=== PATIENT | female | born 1945 | race Caucasian/White ===

== ENCOUNTER 2024-06-04 17:22 | Inpatient (IN) ==
[2024-06-04] MEDS: NORCO 5/325 MG TAB PO PRN (22:51)
[2024-06-04 23:13] VITALS: BMI 34.2
[2024-06-05 06:24] LABS: BASOPHILS # (AUTO) 0.1 X10^3/uL (0.0-0.1); BASOPHILS % (AUTO) 0.9 % (0.2-1.0); EOSINOPHILS # (AUTO) 0.2 x10^3/uL (0.0-0.2); EOSINOPHILS % (AUTO) 3.3 % (0.9-2.9); HEMATOCRIT 36.4 % (36.0-47.0); HEMOGLOBIN 12.2 g/dL (12.0-16.0); LYMPHOCYTES # (AUTO) 1.5 X10^3/uL (1.3-2.9); LYMPHOCYTES % (AUTO) 19.7 % (21.0-51.0); MEAN CORPUSCULAR HEMOGLOBIN 31.2 pg (27.0-34.0); MEAN CORPUSCULAR HGB CONC 33.7 g/dL (33.0-35.0); MEAN CORPUSCULAR VOLUME 92.7 fL (80.0-100.0); MEAN PLATELET VOLUME 8.1 fL (7.4-11.0); MONOCYTES # (AUTO) 0.9 x10^3/uL (0.3-0.8); MONOCYTES % (AUTO) 12.4 % (0.0-13.0); NEUTROPHILS # (AUTO) 4.8 x10^3/uL (2.2-4.8); NEUTROPHILS % (AUTO) 63.7 % (42.0-75.0); PLATELET COUNT 193 X10^3/uL (150.0-450.0); RED BLOOD COUNT 3.92 X10^6/uL (3.5-5.4); RED CELL DISTRIBUTION WIDTH 13.6 % (11.6-16.5); WHITE BLOOD COUNT 7.5 X10^3/uL (3.6-10.0)
[2024-06-05 07:06] LABS: ALBUMIN 2.5 g/dL (3.4-5.0); CALCIUM 8.7 mg/dL (8.5-10.1); CARBON DIOXIDE 28.2 mmol/L (21-32); COR CA(FOR HYPOALB) 9.9 mg/dL (8.5-10.1); CREATININE 1.33 mg/dL (0.55-1.02); POTASSIUM 3.9 mmol/L (3.5-5.1); TOTAL PROTEIN 6.7 g/dL (6.4-8.2)
[2024-06-05] MEDS: COREG TAB 3.125 MG PO SCH (08:57)
[2024-06-05] MEDS: ASPIRIN 81 MG CHEWTAB PO SCH (08:57)
[2024-06-05] MEDS: JANUVIA PO SCH (08:58)
[2024-06-05] MEDS: TAB-A-VITE PO SCH (08:58)
[2024-06-05] MEDS: VITAMIN B-12 PO SCH (08:59)
[2024-06-05] MEDS: ZINC SULFATE PO SCH (08:59)
[2024-06-05] MEDS: MIRALAX POWDER (1 DOSE 17 G) PO SCH (10:28)
[2024-06-05] MEDS: LOVENOX INJ 40 MG SYR SC SCH (10:28)
--- NOTE | 2024-06-05 10:58 | DR.H&P ---
H&P History & Physical for Day of: H&P Date: 06/05/24 Chief Complaint Chief Complaint: right femoral fracture History of Present Illness History of Present Illness: Ms Howard is a 78y/o female with a PMH of HTN, HLD, Type 2 DM presented after having a fall on 05/29/24. Patient was seen at [facility] ER and had imaging done due to worsening right knee pain. She was found to have a distal femoral fracture. She was sent home with ortho f/u, knee mobilizer and pain medication. She saw [facility] on 06/03/24 and was told that no surgical intervention is needed at this time. Patient needs to be NWB for 6 weeks. Patient is not able to take care of herself at home and requires assistance. Ortho had recommended to f/u with PCP regarding rehab placement. Patient would like to be placed in rehab for further treatment and therapy. She states her pain has been well-controlled. Labs/imaging reviewed -See scanned notes from ER visit and Ortho Plan: Admit for physical therapy evaluation, CM working on rehab placement in [facility]. Continue pain control, add lovenox. Add stool softners. Resume home medications. Follow Ortho recommendations. Past Medical History Past Medical History: Diabetes and Hypertension Past Surgical History Surgical History: Joint Replacement Family History Family Medical History: Coronary Artery Disease and Sudden Cardiac Social History Does patient currently use any type of tobacco product: No Type of Tobacco Use: None Does any household member use tobacco: No Alcohol Use: None Drug Use: None Medications Home Medications: Home Medications Medication Instructions Recorded Confirmed Type atorvastatin 40 mg tablet 40 mg PO DAILY 01/25/22 06/04/24 History sitagliptin phosphate 100 mg 100 mg PO DAILY 01/25/22 06/04/24 History tablet (Januvia) ascorbic acid (vitamin C) 500 mg 500 mg PO HS 06/04/24 06/04/24 History tablet (Vitamin C) aspirin 81 mg tablet,delayed 81 mg PO HS 06/04/24 06/04/24 History release biotin 1,000 mcg chewable tablet 1,000 mcg PO HS 06/04/24 06/04/24 History carvedilol 3.125 mg tablet 3.125 mg PO BID 06/04/24 06/04/24 History cholecalciferol (vitamin D3) 25 25 mcg PO HS 06/04/24 06/04/24 History mcg (1,000 unit) capsule (Vitamin D3) cyanocobalamin (vitamin B-12) 3,000 mcg sublingual QDAY 06/04/24 06/04/24 History 2,500 mcg sublingual tablet (Vitamin B-12) hydrocodone 5 mg-acetaminophen 325 1 tab PO Q4H PRN Pain, Severe 06/04/24 06/04/24 History mg tablet [id number] 8 mg-folic 400 1 tab PO DAILY 06/04/24 06/04/24 History mcg-K 50 mcg-lutein 300 mcg tablet (Centrum Silver Women) zinc 50 mg capsule 50 mg PO QDAY 06/04/24 06/04/24 History Allergies Allergies Allergy/AdvReac Type Severity Reaction Status Date / Time No Known Drug Allergies Allergy Verified 01/15/22 11:07 Labs 06/05/24 05:35 06/05/24 05:35 Labs: Laboratory WBC 7.5 X10^3/uL (3.6-10.0) 06/05/24 05:35 RBC 3.92 X10^6/uL (3.5-5.4) 06/05/24 05:35 Hgb 12.2 g/dL (12.0-16.0) 06/05/24 05:35 Hct 36.4 % (36.0-47.0) 06/05/24 05:35 MCV 92.7 fL (80.0-100.0) 06/05/24 05:35 MCH 31.2 pg (27.0-34.0) 06/05/24 05:35 MCHC 33.7 g/dL (33.0-35.0) 06/05/24 05:35 RDW 13.6 % (11.6-16.5) 06/05/24 05:35 Plt Count 193 X10^3/uL (150.0-450.0) 06/05/24 05:35 MPV 8.1 fL (7.4-11.0) 06/05/24 05:35 Neut % (Auto) 63.7 % (42.0-75.0) 06/05/24 05:35 Lymph % (Auto) 19.7 % (21.0-51.0) L 06/05/24 05:35 [place] % (Auto) 12.4 % (0.0-13.0) 06/05/24 05:35 Eos % (Auto) 3.3 % (0.9-2.9) H 06/05/24 05:35 Baso % (Auto) 0.9 % (0.2-1.0) 06/05/24 05:35 Neut # (Auto) 4.8 x10^3/uL (2.2-4.8) 06/05/24 05:35 Lymph # (Auto) 1.5 X10^3/uL (1.3-2.9) 06/05/24 05:35 [place] # (Auto) 0.9 x10^3/uL (0.3-0.8) H 06/05/24 05:35 Eos # (Auto) 0.2 x10^3/uL (0.0-0.2) 06/05/24 05:35 Baso # (Auto) 0.1 X10^3/uL (0.0-0.1) 06/05/24 05:35 Absolute Nucleated RBC 0.1 /100WBC 06/05/24 05:35 Sodium 140 mmol/L (136-145) 06/05/24 05:35 Corrected Sodium 143 mmol/L (136-145) 06/05/24 05:35 Potassium 3.9 mmol/L (3.5-5.1) 06/05/24 05:35 Chloride 102 mmol/L (98-107) 06/05/24 05:35 Carbon Dioxide 28.2 mmol/L (21-32) 06/05/24 05:35 BUN 33 mg/dL (7-18) H 06/05/24 05:35 Creatinine 1.33 mg/dL (0.55-1.02) H 06/05/24 05:35 Est GFR (MDRD) Af Amer 50 (>60) L 06/05/24 05:35 Est GFR (MDRD) Non-Af 41 (>60) L 06/05/24 05:35 Glucose 207 mg/dL (65-99) H 06/05/24 05:35 POC Glucose (mg/dL) 173 mg/dL (65-99) H 06/05/24 06:21 Calcium 8.7 mg/dL (8.5-10.1) 06/05/24 05:35 Corrected Calcium 9.9 mg/dL (8.5-10.1) 06/05/24 05:35 Total Bilirubin 1.00 mg/dL (0.2-1.0) 06/05/24 05:35 AST 32 Units/L (15-37) 06/05/24 05:35 ALT 22 Units/L (12-78) 06/05/24 05:35 Alkaline Phosphatase 86 Units/L (46-116) 06/05/24 05:35 Total Protein 6.7 g/dL (6.4-8.2) 06/05/24 05:35 Albumin 2.5 g/dL (3.4-5.0) L 06/05/24 05:35 Globulin 4.2 g/dL (2.5-4.5) 06/05/24 05:35 Albumin/Globulin Ratio 0.6 Ratio (1.1-2.1) L 06/05/24 05:35 Review of Systems Constitutional: No Symptoms Reported Eyes: No Symptoms Reported Respiratory: No Symptoms Reported Cardiovascular: No Symptoms Reported Gastrointestinal: No Symptoms Reported Musculoskeletal: Leg Pain Skin: Bruising and Ecchymosis Neurological: No Symptoms Reported Physical Exam Vital Signs: Vital Signs Temperature 98.5 F Temperature 97.8 F Pulse Rate [Apical] 88 Pulse Rate [Apical] 86 Respiratory Rate 20 Respiratory Rate 18 Blood Pressure [Left Arm] 145/63 Blood Pressure [Left Arm] 130/65 O2 Sat by Pulse Oximetry 95 O2 Sat by Pulse Oximetry 96 Oriented: Normal Eyes: Normal Throat: Normal Respiratory: Clear Throughout Cardiovascular: Normal Auscultation: Bowel Sounds: Normal Palpation: Normal Tenderness: Normal Skin: Bruising and Ecchymosis Musculoskeletal: Right, Left and Knee Psychiatric: Normal Mood Description: Calm Affect: Normal Speech Pattern: Clear and Appropriate Assessment/Plan (1) Fall: Qualifiers: Encounter type: sequela Qualified Code(s): W19.XXXS - Unspecified fall, sequela Status: Acute (2) Right femoral fracture: Qualifiers: Encounter type: initial encounter Femur location: condyle Fracture type: closed Fracture alignment: nondisplaced Qualified Code(s): S72.414A - Nondisplaced unspecified condyle fracture of lower end of right femur, initial encounter for closed fracture Status: Acute (3) Generalized weakness: Status: Acute (4) Type 2 diabetes mellitus: Qualifiers: Diabetes mellitus terminal block assembler insulin use: without terminal block assembler use Diabetes mellitus complication status: without complication Qualified Code(s): E11.9 - Type 2 diabetes mellitus without complications Status: Acute (5) HTN (hypertension): Qualifiers: Hypertension type: primary hypertension Qualified Code(s): I10 - Essential (primary) hypertension Status: Acute
[2024-06-05] MEDS: NovoLIN R (or HumuLIN R) SUBCUT PRN (11:38)
[2024-06-05] MEDS: COLACE CAP 100 MG PO SCH (21:39)
[2024-06-05] MEDS: VITAMIN D3 25 mcg (1,000 UNITS) PO SCH (21:40)
[2024-06-05] MEDS: LIPITOR TAB 40 MG PO SCH (21:40)
[2024-06-05] MEDS: SNACK - Diabetic Appropriate PO SCH ×2 (21:40)
[2024-06-05] MEDS: VITAMIN C PO SCH (21:40)
[2024-06-05] MEDS: NORCO 5/325 MG TAB PO PRN (21:50)
[2024-06-06 06:22] LABS: BASOPHILS # (AUTO) 0.1 X10^3/uL (0.0-0.1); BASOPHILS % (AUTO) 0.9 % (0.2-1.0); EOSINOPHILS # (AUTO) 0.3 x10^3/uL (0.0-0.2); HEMATOCRIT 36.4 % (36.0-47.0); LYMPHOCYTES # (AUTO) 1.2 X10^3/uL (1.3-2.9); LYMPHOCYTES % (AUTO) 14.7 % (21.0-51.0); MEAN CORPUSCULAR HEMOGLOBIN 30.8 pg (27.0-34.0); MEAN CORPUSCULAR HGB CONC 33.1 g/dL (33.0-35.0); MEAN CORPUSCULAR VOLUME 92.9 fL (80.0-100.0); MEAN PLATELET VOLUME 8.1 fL (7.4-11.0); MONOCYTES # (AUTO) 0.9 x10^3/uL (0.3-0.8); MONOCYTES % (AUTO) 11.7 % (0.0-13.0); NEUTROPHILS # (AUTO) 5.5 x10^3/uL (2.2-4.8); NEUTROPHILS % (AUTO) 68.7 % (42.0-75.0); PLATELET COUNT 219 X10^3/uL (150.0-450.0); RED BLOOD COUNT 3.91 X10^6/uL (3.5-5.4); RED CELL DISTRIBUTION WIDTH 13.5 % (11.6-16.5)
[2024-06-06 06:45] LABS: ALBUMIN 2.4 g/dL (3.4-5.0); CALCIUM 9.3 mg/dL (8.5-10.1); CARBON DIOXIDE 29.2 mmol/L (21-32); COR CA(FOR HYPOALB) 10.6 mg/dL (8.5-10.1); CREATININE 1.28 mg/dL (0.55-1.02); TOTAL PROTEIN 6.6 g/dL (6.4-8.2)
--- NOTE | 2024-06-06 09:48 | PCM.PROG ---
Progress Note Progress Note for Day of Date of Exam: 06/06/24 Subjective Subjective: Pt is a 78y/o female with a PMH of HTN, HLD, Type 2 DM admitted for distal femoral fracture. She [facility] on [facility]24 and was told that no surgical intervention is needed at this time. Patient needs to be NWB for 6 weeks. Patient is not able to take care of herself at home and requires assistance. Patient would like to be placed in rehab for further treatment and therapy. She states her pain has been well-controlled. Labs/imaging reviewed -Wbc 8, Hgb 12, Plt 219 -Na 140, K 4, Creatinine 1.28, Glucose 186 -See scanned notes from ER visit and Ortho Plan: Continue physical therapy, CM working on rehab placement in [facility]. Continue pain control, DVT ppx lovenox. Home medications have been resumed. Follow Ortho recommendations. Otherwise, continue current treatment plan. Follow up labs in the morning. Past Medical Family Social History Allergies: Allergies No Known Drug Allergies Allergy (Verified 01/15/22 11:07) Review of Systems ROS changes noted: see HPI Vital Signs and I&O's Vital Signs: Vital Signs Temperature 98.1 F Temperature 97.9 F Pulse Rate [Apical] 89 Pulse Rate [Apical] 94 Respiratory Rate 18 Respiratory Rate 18 Blood Pressure [Left Arm] 124/56 Blood Pressure [Left Arm] 147/65 O2 Sat by Pulse Oximetry 93 O2 Sat by Pulse Oximetry 95 Intake and Output: Intake & Output 06/03/24 06/04/24 06/05/24 06/06/24 23:59 23:59 23:59 23:59 Intake Total 200 / 200 1350 / 1350 0 / 0 Output Total 0 / 0 Balance 200 / 200 1350 / 1350 0 / 0 Physical Exam Oriented: Normal Eyes: Normal Throat: Normal Respiratory: Normal Cardiovascular: Normal Auscultation: Bowel Sounds: Normal Tenderness: Normal Skin: Bruising and Ecchymosis Musculoskeletal: Right, Left and Knee Psychiatric: Normal Mood Description: Calm Affect: Normal Speech Pattern: Clear and Appropriate Laboratory and Diagnostics 06/06/24 05:39 06/06/24 05:39 Labs: Laboratory WBC 8.0 X10^3/uL (3.6-10.0) 06/06/24 05:39 RBC 3.91 X10^6/uL (3.5-5.4) 06/06/24 05:39 Hgb 12.0 g/dL (12.0-16.0) 06/06/24 05:39 Hct 36.4 % (36.0-47.0) 06/06/24 05:39 MCV 92.9 fL (80.0-100.0) 06/06/24 05:39 MCH 30.8 pg (27.0-34.0) 06/06/24 05:39 MCHC 33.1 g/dL (33.0-35.0) 06/06/24 05:39 RDW 13.5 % (11.6-16.5) 06/06/24 05:39 Plt Count 219 X10^3/uL (150.0-450.0) 06/06/24 05:39 MPV 8.1 fL (7.4-11.0) 06/06/24 05:39 Neut % (Auto) 68.7 % (42.0-75.0) 06/06/24 05:39 Lymph % (Auto) 14.7 % (21.0-51.0) L 06/06/24 05:39 [place] % (Auto) 11.7 % (0.0-13.0) 06/06/24 05:39 Eos % (Auto) 4.0 % (0.9-2.9) H 06/06/24 05:39 Baso % (Auto) 0.9 % (0.2-1.0) 06/06/24 05:39 Neut # (Auto) 5.5 x10^3/uL (2.2-4.8) H 06/06/24 05:39 Lymph # (Auto) 1.2 X10^3/uL (1.3-2.9) L 06/06/24 05:39 [place] # (Auto) 0.9 x10^3/uL (0.3-0.8) H 06/06/24 05:39 Eos # (Auto) 0.3 x10^3/uL (0.0-0.2) H 06/06/24 05:39 Baso # (Auto) 0.1 X10^3/uL (0.0-0.1) 06/06/24 05:39 Absolute Nucleated RBC 0.0 /100WBC 06/06/24 05:39 Sodium 140 mmol/L (136-145) 06/06/24 05:39 Corrected Sodium 142 mmol/L (136-145) 06/06/24 05:39 Potassium 4.0 mmol/L (3.5-5.1) 06/06/24 05:39 Chloride 103 mmol/L (98-107) 06/06/24 05:39 Carbon Dioxide 29.2 mmol/L (21-32) 06/06/24 05:39 BUN 31 mg/dL (7-18) H 06/06/24 05:39 Creatinine 1.28 mg/dL (0.55-1.02) H 06/06/24 05:39 Est GFR (MDRD) Af Amer 52 (>60) L 06/06/24 05:39 Est GFR (MDRD) Non-Af 43 (>60) L 06/06/24 05:39 Glucose 186 mg/dL (65-99) H 06/06/24 05:39 POC Glucose (mg/dL) 175 mg/dL (65-99) H 06/06/24 05:29 Calcium 9.3 mg/dL (8.5-10.1) 06/06/24 05:39 Corrected Calcium 10.6 mg/dL (8.5-10.1) H 06/06/24 05:39 Total Bilirubin 1.20 mg/dL (0.2-1.0) H 06/06/24 05:39 AST 37 Units/L (15-37) 06/06/24 05:39 ALT 29 Units/L (12-78) 06/06/24 05:39 Alkaline Phosphatase 97 Units/L (46-116) 06/06/24 05:39 Total Protein 6.6 g/dL (6.4-8.2) 06/06/24 05:39 Albumin 2.4 g/dL (3.4-5.0) L 06/06/24 05:39 Globulin 4.2 g/dL (2.5-4.5) 06/06/24 05:39 Albumin/Globulin Ratio 0.6 Ratio (1.1-2.1) L 06/06/24 05:39 Plan (1) Fall: Status: Acute Qualifiers: Encounter type: sequela Qualified Code(s): W19.XXXS - Unspecified fall, sequela (2) Right femoral fracture: Status: Acute Qualifiers: Encounter type: initial encounter Femur location: condyle Fracture type: closed Fracture alignment: nondisplaced Qualified Code(s): S72.414A - Nondisplaced unspecified condyle fracture of lower end of right femur, initial encounter for closed fracture (3) Generalized weakness: Status: Acute (4) Type 2 diabetes mellitus: Status: Acute Qualifiers: Diabetes mellitus fpc insulin use: without fpc use Diabetes mellitus complication status: without complication Qualified Code(s): E11.9 - Type 2 diabetes mellitus without complications (5) HTN (hypertension): Status: Acute Qualifiers: Hypertension type: primary hypertension Qualified Code(s): I10 - Essential (primary) hypertension
[2024-06-06] MEDS: VOLTAREN 1 % GEL MULTI DOSE TUBE TOP SCH (10:33)
[2024-06-07 10:01] VITALS: BP 114/56; PULSE 89; RESP 20; TEMP 98.2; O2SAT 90
--- NOTE | 2024-06-11 19:07 | W.DIS.FURT ---
Summary of Discharge Discharge Summary of Date Date of Exam: 06/07/24 Admission Date Date of Admission: 06/04/24 Admission Diagnosis Hospital Course: Pt is a 78y/o female with a PMH of HTN, HLD, Type 2 DM admitted for distal femoral fracture. She saw [facility] on 06/03/24 and was told that no surgical intervention is needed at this time. Patient needs to be NWB for 6 weeks. Patient is not able to take care of herself at home and requires assistance. Hospital/treatment course included: physical therapy, pain control, DVT ppx lovenox. Home medications were resumed. Pt responded well to treatments. She was transferred to [facility] in stable condition for further rehab and will follow up with ortho outpatient. Vital Signs: Vital Signs (72 hours) 06/04/24 19:40 06/04/24 19:40 06/04/24 22:51 Temperature 98.1 F Pulse Rate [Apical] 94 H Respiratory Rate 18 21 Blood Pressure [Left Arm] 119/68 O2 Sat by Pulse Oximetry 92 L Oxygen Delivery Method Room Air Room Air 06/04/24 23:51 06/05/24 00:00 06/05/24 04:00 Temperature 98.5 F 97.8 F Pulse Rate [Apical] 95 H 86 Respiratory Rate 19 18 18 Blood Pressure [Left Arm] 132/65 130/65 O2 Sat by Pulse Oximetry 95 96 Oxygen Delivery Method Room Air Room Air 06/05/24 08:00 06/05/24 07:00 06/05/24 12:00 Temperature 98.5 F 97.9 F Pulse Rate [Apical] 88 87 Respiratory Rate 20 18 Blood Pressure [Left Arm] 145/63 130/60 O2 Sat by Pulse Oximetry 95 92 L Oxygen Delivery Method Room Air Room Air Room Air 06/05/24 16:00 06/05/24 21:50 06/05/24 22:50 Temperature 97.9 F Pulse Rate [Apical] 88 Respiratory Rate 18 18 18 Blood Pressure [Left Arm] 143/64 O2 Sat by Pulse Oximetry 94 L Oxygen Delivery Method Room Air 06/05/24 19:00 06/05/24 20:00 06/06/24 00:00 Temperature 98.0 F 97.7 F Pulse Rate [Apical] 91 H 82 Respiratory Rate 18 18 Blood Pressure [Left Arm] 132/62 122/85 O2 Sat by Pulse Oximetry 98 94 L Oxygen Delivery Method Room Air Room Air Room Air 06/06/24 04:00 06/06/24 09:42 06/06/24 08:00 Temperature 97.9 F 98.1 F Pulse Rate [Apical] 94 H 89 Respiratory Rate 18 18 Blood Pressure [Left Arm] 147/65 124/56 O2 Sat by Pulse Oximetry 95 93 L Oxygen Delivery Method Room Air Room Air Room Air 06/06/24 12:00 06/06/24 16:00 06/06/24 19:00 Temperature 98.1 F 98.6 F Pulse Rate [Apical] 88 91 H Respiratory Rate 18 18 Blood Pressure [Left Arm] 125/58 123/60 O2 Sat by Pulse Oximetry 94 L 94 L Oxygen Delivery Method Room Air Room Air Room Air 06/06/24 20:00 06/07/24 00:00 06/07/24 04:00 Temperature 98.2 F 99.2 F 98.0 F Pulse Rate [Apical] 92 H 97 H 93 H Respiratory Rate 18 18 18 Blood Pressure [Left Arm] 114/57 124/59 133/62 O2 Sat by Pulse Oximetry 96 94 L 96 Oxygen Delivery Method Room Air Room Air Room Air 06/07/24 07:00 Temperature Pulse Rate [Apical] Respiratory Rate Blood Pressure [Left Arm] O2 Sat by Pulse Oximetry Oxygen Delivery Method Room Air Labs: Laboratory Last Values WBC 8.0 X10^3/uL (3.6-10.0) 06/06/24 05:39 RBC 3.91 X10^6/uL (3.5-5.4) 06/06/24 05:39 Hgb 12.0 g/dL (12.0-16.0) 06/06/24 05:39 Hct 36.4 % (36.0-47.0) 06/06/24 05:39 MCV 92.9 fL (80.0-100.0) 06/06/24 05:39 MCH 30.8 pg (27.0-34.0) 06/06/24 05:39 MCHC 33.1 g/dL (33.0-35.0) 06/06/24 05:39 RDW 13.5 % (11.6-16.5) 06/06/24 05:39 Plt Count 219 X10^3/uL (150.0-450.0) 06/06/24 05:39 MPV 8.1 fL (7.4-11.0) 06/06/24 05:39 Neut % (Auto) 68.7 % (42.0-75.0) 06/06/24 05:39 Lymph % (Auto) 14.7 % (21.0-51.0) L 06/06/24 05:39 [place] % (Auto) 11.7 % (0.0-13.0) 06/06/24 05:39 Eos % (Auto) 4.0 % (0.9-2.9) H 06/06/24 05:39 Baso % (Auto) 0.9 % (0.2-1.0) 06/06/24 05:39 Neut # (Auto) 5.5 x10^3/uL (2.2-4.8) H 06/06/24 05:39 Lymph # (Auto) 1.2 X10^3/uL (1.3-2.9) L 06/06/24 05:39 [place] # (Auto) 0.9 x10^3/uL (0.3-0.8) H 06/06/24 05:39 Eos # (Auto) 0.3 x10^3/uL (0.0-0.2) H 06/06/24 05:39 Baso # (Auto) 0.1 X10^3/uL (0.0-0.1) 06/06/24 05:39 Absolute Nucleated RBC 0.0 /100WBC 06/06/24 05:39 Sodium 140 mmol/L (136-145) 06/06/24 05:39 Corrected Sodium 142 mmol/L (136-145) 06/06/24 05:39 Potassium 4.0 mmol/L (3.5-5.1) 06/06/24 05:39 Chloride 103 mmol/L (98-107) 06/06/24 05:39 Carbon Dioxide 29.2 mmol/L (21-32) 06/06/24 05:39 BUN 31 mg/dL (7-18) H 06/06/24 05:39 Creatinine 1.28 mg/dL (0.55-1.02) H 06/06/24 05:39 Est GFR (MDRD) Af Amer 52 (>60) L 06/06/24 05:39 Est GFR (MDRD) Non-Af 43 (>60) L 06/06/24 05:39 Glucose 186 mg/dL (65-99) H 06/06/24 05:39 POC Glucose (mg/dL) 157 mg/dL (65-99) H 06/07/24 05:20 Calcium 9.3 mg/dL (8.5-10.1) 06/06/24 05:39 Corrected Calcium 10.6 mg/dL (8.5-10.1) H 06/06/24 05:39 Total Bilirubin 1.20 mg/dL (0.2-1.0) H 06/06/24 05:39 AST 37 Units/L (15-37) 06/06/24 05:39 ALT 29 Units/L (12-78) 06/06/24 05:39 Alkaline Phosphatase 97 Units/L (46-116) 06/06/24 05:39 Total Protein 6.6 g/dL (6.4-8.2) 06/06/24 05:39 Albumin 2.4 g/dL (3.4-5.0) L 06/06/24 05:39 Globulin 4.2 g/dL (2.5-4.5) 06/06/24 05:39 Albumin/Globulin Ratio 0.6 Ratio (1.1-2.1) L 06/06/24 05:39 Reason For Visit: RIGHT FEMUR FRACTURE Discharge Date Discharge Date: 06/07/24 Discharge Diagnosis All Active Problems (Updated 06/05/24 @ 10:58 by Frances Rajan) HTN (hypertension) (Acute) Type 2 diabetes mellitus (Acute) Generalized weakness (Acute) Right femoral fracture (Acute) Fall (Acute) Renal colic on left side (Acute) Acute renal failure (ARF) (Acute) Acute hyperkalemia (Acute) Sepsis (Acute) Metabolic acidosis (Acute) Acute hypotension (Acute) Hypoxia (Acute) Plan of Treatment: Continue with present treatment and follow up plan. Pt is to keep follow up appointment as instructed and take medications as ordered. Discharge Medications Discharge Medications: No Known Drug Allergies Allergy (Verified 01/15/22 11:07) CONTINUE taking the following medications ascorbic acid (vitamin C) 500 mg tablet (Vitamin C) 500 mg PO HS 06/04/24 [History] aspirin 81 mg tablet,delayed release 81 mg PO HS 06/04/24 [History] biotin 1,000 mcg chewable tablet 1,000 mcg PO HS 06/04/24 [History] carvedilol 3.125 mg tablet 3.125 mg PO BID 06/04/24 [History] cholecalciferol (vitamin D3) 25 mcg (1,000 unit) capsule (Vitamin D3) 25 mcg PO HS 06/04/24 [History] cyanocobalamin (vitamin B-12) 2,500 mcg sublingual tablet (Vitamin B-12) 3,000 mcg sublingual QDAY 06/04/24 [History] hydrocodone 5 mg-acetaminophen 325 mg tablet 1 tab PO Q4H PRN Pain, Severe 06/04/24 [History] irdjruxz-nuuj-chmt 8 mg-folic 400 mcg-K 50 mcg-lutein 300 mcg tablet (Centrum Silver Women) 1 tab PO DAILY 06/04/24 [History] zinc 50 mg capsule 50 mg PO QDAY 06/04/24 [History] New Prescriptions enoxaparin 40 mg/0.4 mL subcutaneous syringe (Lovenox) 40 mg (0.4 mL) subcut QDAY 30 days #30 doses 06/07/24 [Rx] Discharge Disposition Assessment: No distress noted. Discharge Plan Discharge Plan Hospital Course: Pt is a 78y/o female with a PMH of HTN, HLD, Type 2 DM admitted for distal femoral fracture. She [facility] on 06/[facility]24 and was told that no surgical intervention is needed at this time. Patient needs to be NWB for 6 weeks. Patient is not able to take care of herself at home and requires assistance. Hospital/treatment course included: physical therapy, pain control, DVT ppx lovenox. Home medications were resumed. Pt responded well to treatments. She was transferred to [facility] in stable condition for further rehab and will follow up with ortho outpatient. Patient Disposition: [facility] Condition: Stable Health Concerns: Post Hospitalization: new medications and changes needed to prevent readmission or further decline. Pt educated and given instructions on all concerns. Care Plan Goals: Problem: Activity Intolerance Goal: Increased tolerance to activity Instructions: Follow provided instructions. Follow up with primary physician as directed. Contact primary care physician or report to the closest Emergency Room if condition worsens. Plan of Treatment: Continue with present treatment and follow up plan. Pt is to keep follow up appointment as instructed and take medications as ordered. Assessment: No distress noted. Prescriptions: New enoxaparin [Lovenox] 40 mg/0.4 mL Syringe 40 mg SUBCUT QDAY 30 Days Qty: 30 0RF No Action atorvastatin 40 mg tablet 40 mg PO DAILY Januvia 100 mg tablet 100 mg PO DAILY carvedilol 3.125 mg tablet 3.125 mg PO BID aspirin 81 mg Tablet,Delayed Release (Dr/Ec) 81 mg PO HS zinc 50 mg Capsule 50 mg PO QDAY cyanocobalamin (vitamin B-12) [Vitamin B-12] 2,500 mcg Tablet, Sublingual 3,000 mcg SUBLINGUAL QDAY hydrocodone-acetaminophen 5-325 mg tablet 1 tab PO Q4H PRN (Reason: Pain, Severe) Rx Instructions: 1/2 - 1 tab po every 4 hours as needed for severe pain ascorbic acid (vitamin C) [Vitamin C] 500 mg Tablet 500 mg PO HS Centrum Silver Women 8 mg iron-400 mcg-50 mcg Tablet 1 tab PO DAILY biotin 1,000 mcg Tablet,Chewable 1,000 mcg PO HS cholecalciferol (vitamin D3) [Vitamin D3] 25 mcg (1,000 unit) Capsule 25 mcg PO HS Orders to Discharge Patient Discharge Orders: Discharge (Routine); Ordered 06/07/24 Ordered By: Maikol Garcia Follow ups/Referrals Follow ups/Referrals: Al Mcnally [Primary Care Provider] - (Follow up in halfway with Dr. Mcnally.)
== END 2024-06-07 08:55 | DRG 534 ==
LOC: MED/SURG 17:23
PROVIDERS: ADMIT Internal Medicine; ATTEND Internal Medicine
DX: E78.5 Hyperlipidemia, unspecified; R53.1 Weakness; Z65.8 Other specified problems related to psychosocial circumstances; Z73.4 Inadequate social skills, not elsewhere classified; W18.39XA Other fall on same level, initial encounter; E11.65 Type 2 diabetes mellitus with hyperglycemia; S72.414A Nondisplaced unspecified condyle fracture of lower end of right femur, initial encounter for closed fracture; R26.89 Other abnormalities of gait and mobility; Z47.89 Encounter for other orthopedic aftercare; I10 Essential (primary) hypertension